=== PATIENT | female | born 1950 | race Caucasian/White ===

== ENCOUNTER 2022-01-01 15:49 | Inpatient (IN) | payer MEDICARE ==
[~2022-01-01] VITALS: Ht 152.4 cm; Wt 51.7 kg
--- NOTE | 2022-01-01 15:49 | NUR ---
BIB [facility] 59 FROM HOME,C/O LEFT HIP PAIN, GLF WHILE TYING HER SHOES,DENIES ANY LOC. TO ER BED 2, HOOKED TO MONITOR, CHANGED TO HOSP GOWN, NOTED W [facility] DIALYSIS ACCESS. ON HD T--S. WARM BLANKET PROVIDED. PATIENT AAO x 4. BREATHING EVEN AND UNLABORED. AWAITING MD TERESA
[2022-01-01] MEDS ORDERED: CARV25TA2 PO (16:51)
[2022-01-01] MEDS ORDERED: INSU100I14 SQ (16:51)
[2022-01-01] MEDS ORDERED: INSU100I24 SQ (16:51)
[2022-01-01] MEDS ORDERED: LISI40TA13 PO (16:51)
[2022-01-01] MEDS ORDERED: LEVO25TA9 PO (16:51)
[2022-01-01] MEDS ORDERED: ATOR40TA PO (16:51)
[2022-01-01] MEDS ORDERED: ISOS30TA86 PO (16:51)
[2022-01-01] MEDS ORDERED: BUPR75TA8 PO (16:51)
[2022-01-01] MEDS ORDERED: FURO40TA5 PO (16:51)
[2022-01-01] MEDS ORDERED: SERT100T12 PO (16:51)
[2022-01-01] MEDS ORDERED: CALC667C6 PO (16:51)
[2022-01-01] MEDS ORDERED: MIRT7.5T10 PO (16:51)
--- NOTE | 2022-01-01 17:20 | NUR ---
MOVE SHEET SUBMITTED.
--- NOTE | 2022-01-01 17:20 | NUR ---
SR AMES AT BEDSIDE
--- NOTE | 2022-01-01 17:28 | NUR ---
informed nursing sup of midline insertion
--- NOTE | 2022-01-01 17:32 | NUR ---
RAPID COVID SWAB DONE AND SENT TO LAB
--- NOTE | 2022-01-01 17:41 | NUR ---
[facility] CALLED ARTIST WOODBLOCK PAGED.
[2022-01-01 17:54] LABS: CARBON DIOXIDE 31 mmol/L (21-32); CHLORIDE 98 mmol/L (98-107); CREATININE 6.3 mg/dL (0.6-1.3); GLUCOSE 77 mg/dL (74-106); POTASSIUM 4.7 mmol/L (3.5-5.1); SODIUM SERUM 141 mmol/L (136-145); UREA NITROGEN, BLOOD 46 mg/dL (7-18)
[2022-01-01 17:55] LABS: CALCIUM, SERUM 8.2 mg/dL (8.5-10.1)
--- NOTE | 2022-01-01 18:24 | NUR ---
MIDLINE NURSE AT BEDSIDE
[2022-01-01 18:27] LABS: BASOPHILS # (AUTO) 0.1 K/uL (0.0-0.2); EOSINOPHILS % (AUTO) 2.5 % (0.0-6.0); HEMATOCRIT 39 % (33-45); HEMOGLOBIN 12.6 g/dL (11.5-14.8); LYMPHOCYTES # (AUTO) 0.5 K/uL (0.8-4.8); LYMPHOCYTES % (AUTO) 7.1 % (20.0-44.0); MEAN CORPUSCULAR HGB CONC 33 g/dl (31.0-36.0); MEAN CORPUSCULAR VOLUME 97 fL (82-100); MONOCYTES # (AUTO) 0.5 K/uL (0.1-1.30); MONOCYTES % (AUTO) 7.2 % (2.0-12.0); NEUTROPHILS # (AUTO) 5.3 K/uL (1.8-8.9); NEUTROPHILS % (AUTO) 82.2 % (43.0-81.0); PLATELET COUNT (AUTO) 140 K/uL (150-450); RED BLOOD CELL COUNT(AUTO) 3.99 MIL/uL (4.0-5.2); WHITE BLOOD COUNT (AUTO) 6.4 K/uL (4.3-11.0)
--- NOTE | 2022-01-01 18:31 | NUR ---
DR. ADAMSON ORTHO SPEAKING WITH DR. AMES.
[2022-01-01] MEDS ORDERED: buPROPion 75 MG TABLET PO SCH (19:00)
--- NOTE | 2022-01-01 19:46 | NUR ---
FOLLOWED UP RAPID COVID SWAB FROM MAIN LAB
[2022-01-01] MEDS ORDERED: ONDANSETRON HCL/PF 4 MG/2 ML VIAL ONE (20:10)
[2022-01-01] MEDS ORDERED: MORPHINE SULFATE INJ 4 MG/ML DISP.SYRIN ONE (20:10)
--- NOTE | 2022-01-01 20:29 | NUR ---
BED 112-1
[2022-01-01] MEDS ORDERED: ONDANSETRON HCL/PF 4 MG/2 ML VIAL IV ONE (20:30)
[2022-01-01] MEDS ORDERED: MORPHINE SULFATE INJ 2 MG/ML DISP.SYRIN IV ONE (20:30)
--- NOTE | 2022-01-01 20:52 | NUR ---
REPORT GIVEN TO TANNER
[2022-01-01 21:00] VITALS: BP 142/53
--- NOTE | 2022-01-01 21:02 | NUR ---
PT TRANSPORTED TO ROOM 112-1 WITHOUT INCIDENT
--- NOTE | 2022-01-01 21:05 | NUR ---
2104 Admitted from ER 71 year old female via [facility] with Dx of Left hip Fx. Patient AAOx4. Requires max assist with ADLs due to left hip fracture. On R/A with O2 saturation 97%. Vital signs taken accordingly. Admission care rendered. No skin breakdown noted. Walker cath intact and patent with clear yellow urine in drainage bag. Left AV shunt open to air. Right midline intact and patent. Repositioned for comfort. Call light placed within reach and instructed to call for assistance.
--- NOTE | 2022-01-01 21:30 | NUR ---
2130 Per nursing final assembly and packing supervisor Adalid patient with undergo left hip IM rodding in AM with Dr. Siddiqi.
[2022-01-01] MEDS: INSULIN GLARGINE, 100 UNIT/ML CARTRIDGE SQ SCH (22:00)
[2022-01-01] MEDS ORDERED: ATORVASTATIN 40 MG TABLET PO SCH (22:00)
--- NOTE | 2022-01-01 22:00 | NUR ---
RN NOTES: NEW ADMISSION FROM HOME,71 Y.O., FEMALE,BROUGHT IN VIA [employer], SHE WAS TYING HER SHOES AND SHE LOSS BALANCE AND FELL DOWN ON HER LEFT SIDE RESULTING TO LEFT INTERTROCHANTERIC FRACTURE, RECEIEVD MORPHINE 4 MG IV AND ZOFRAN FROM ER, VACCINATION: RECIEVED PNA, FLU AND COVID VACCINE UNABLE TO RECALL WHEN.ORIENTED TO UNIT AND STAFF. --BODY CHECK DONE: 1)SKIN DISCOLORATION ON THE LEFT INNER THIGH 2)EARNEST-MID LINE 3)OLD SURGICAL SCAR: MID CHEST(CABG) AND ABDOMEN AREA(OLD SCAR) 4)RAH DIALYSIS SITE (+) BRUIT AND (+) THRILL 5) STALLINGS CATH ON SITE F-16/10ML DRAINING INTO YELLOWISH COLORED URINE.
[2022-01-01] MEDS: ATORVASTATIN 40 MG TABLET PO SCH (22:45)
--- NOTE | 2022-01-01 22:58 | NUR ---
RN NOTES: -BLOOD SUGAR CHECKED-62, LANTUS NOT GIVEN. -PATIENT IS VERY ALERT AND COHERENT X4, GIVEN JUICE AND CRACKERS.
[2022-01-02] VITALS (7 sets, daily range): BP systolic 98–167; BP diastolic 50–66
--- NOTE | 2022-01-02 06:11 | NUR ---
RN NOTES: REPOSITIONED, CONSENT SIGNED BY PATIENT FOR HER SCHEDULE PROCEDURE OF IM RODDING ON THE LEFT HIP THIS MORNING, SURGEON: ROBERT SINGH. -SHE SAID SHE IS THE ONE DECIDING FOR HER SELF, NOT HER SON AND SHE WANTS TO BE IN FULL CODE.
--- NOTE | 2022-01-02 07:29 | NUR ---
RN NOTES: -CONSENT OBTAINED,FOR DIALYSIS TODAY, STILL ON NPO, PROCEDURE WILL BE AROUND 12 NOON, PATIENT IS HAVING ON AND OFF PAIN, ENDORSED TO MORNING SHIFT TO F/U PRN PAIN MEDICATION ORDER. -BLOOD SUGAR CHECK=80, MONITORED FOR SIGN OF HYPER/HYPOGLYCEMIA.
[2022-01-02] MEDS: LEVOTHYROXINE SODIUM 25 MCG TABLET PO SCH (07:30)
--- NOTE | 2022-01-02 07:30 | NUR ---
ms rn received on bed, awake,alert,oriented x3, hd going on,no distresss noted, lungs are diminish, abdomen soft,positive bowel sounds,denies pain at this time, will monitor patient.
[2022-01-02] MEDS: CARVEDILOL 12.5 MG TABLET PO SCH ×2 (08:00→17:34)
[2022-01-02] MEDS: CALCIUM ACETATE 667 MG CAP/TAB PO SCH ×3 (08:00→16:54)
[2022-01-02] MEDS ORDERED: Medication Not On Formulary EA (Sertraline Hcl 100 MG) PO SCH (09:00)
[2022-01-02] MEDS ORDERED: MORPHINE SULFATE INJ 2 MG/ML DISP.SYRIN IV PRN (09:00)
[2022-01-02] MEDS ORDERED: LEVOTHYROXINE SODIUM 25 MCG TABLET PO SCH (09:00)
[2022-01-02] MEDS: ISOSORBIDE MONONITRATE (30MG) 30 MG TAB.SR.24H PO SCH (09:00)
[2022-01-02] MEDS ORDERED: ISOSORBIDE MONONITRATE (30MG) 30 MG TAB.SR.24H PO SCH (09:00)
[2022-01-02] MEDS: buPROPion 75 MG TABLET PO SCH ×2 (09:00→16:54)
[2022-01-02] MEDS: SERTRALINE HCL 50 MG TABLET PO SCH (09:00)
[2022-01-02] MEDS: LISINOPRIL (20MG) 20 MG TABLET PO SCH (09:00)
--- NOTE | 2022-01-02 10:00 | NUR ---
ms nancy hd done w/ 2 liters out
--- NOTE | 2022-01-02 10:20 | NUR ---
ms rn patient went down for surgery at this time.all needs attended.
[2022-01-02] MEDS ORDERED: FAMOTIDINE/PF INJ 20 MG/2 ML VIAL IV ONE (10:46)
[2022-01-02] MEDS ORDERED: FENTANYL PF 250MCG/5ML AMPUL ONE (10:46)
[2022-01-02] MEDS ORDERED: ROCURONIUM BROMIDE 50 MG/5 ML ONE (10:47)
[2022-01-02] MEDS ORDERED: ANESTHESIA TRAY IN PYXIS 1 EA TRAY MC ONE (10:51)
[2022-01-02] MEDS ORDERED: BUPIVACAINE 0.25% 75 MG/30 ML VIAL ONE (10:52)
[2022-01-02] MEDS ORDERED: POLYMYXIN B SULFATE 500,000 UNITS ONE (10:52)
[2022-01-02] MEDS ORDERED: ACETAMINOPHEN 325 MG TABLET PO PRN (14:30)
--- NOTE | 2022-01-02 14:30 | NUR ---
ms rn patientcame back, alert,oriented x4,not in any form of distress,denies pain at this time
[2022-01-02 14:49] LABS: HEMOGLOBIN 11.6 g/dL (11.5-14.8)
[2022-01-02] MEDS ORDERED: ONDANSETRON HCL/PF 4 MG/2 ML VIAL IV PRN (16:30)
[2022-01-02] MEDS: ENOXAPARIN SODIUM 30 MG/0.3 ML DISP.SYRIN SQ SCH (16:55)
[2022-01-02] MEDS ORDERED: Medication Not On Formulary EA (Mirtazapine 7.5 MG) PO SCH (18:00)
--- NOTE | 2022-01-02 18:21 | NUR ---
ms rn patient on bed, son at bedside, surgical site w/ dressing clean and dry, no active bleeding noted, denies pain at this time, zofran iv given for nausea, repositioned for comfort ,all needs attended.
[2022-01-02] MEDS: MIRTAZAPINE 15 MG TABLET PO SCH (18:45)
--- NOTE | 2022-01-02 20:00 | NUR ---
MS RN notes Received Pts in bed awake alert and responsive able to make needs known ,on room air no sob no distress noted v/s stable afebrile pts is S/P left hip IM, Dressing dry intact no bleeding noted , pts was turned reposition ,iv antibiotic given as ordered ,no ase noted , with [place] ml intact and patent, with folley cath draining with yellowish urine output ,all needs attended too call light within reach pts with left ua av shunt with bruit and thrill noted had hd today 2 liters out taken from hd.kept pts clean dry and comfortable will continue to monitor pts.
[2022-01-02] MEDS: ATORVASTATIN 40 MG TABLET PO SCH (21:00)
[2022-01-02] MEDS: ANCEF 1 GM/50 ML D5W IV SCH ×2 (21:00)
--- NOTE | 2022-01-02 22:00 | NUR ---
ms notes Blood sugar at 10pm is 223 mg/dl lantus 8 units given sq as ordered kept pts clean dry and comfortable pts on cardiac diet ,will continue to monitor pts.
[2022-01-02] MEDS: INSULIN GLARGINE, 100 UNIT/ML CARTRIDGE SQ SCH (23:14)
[2022-01-02] MEDS: HYDROCODONE/APAP 5/325MG TABLET PO PRN (23:18)
[2022-01-03 04:00] VITALS: BP 148/54
[2022-01-03] MEDS: ANCEF 1 GM/50 ML D5W IV SCH ×2 (05:06)
[2022-01-03] MEDS: HYDROCODONE/APAP 5/325MG TABLET PO PRN ×2 (05:51→16:28)
--- NOTE | 2022-01-03 06:46 | NUR ---
ms rn notes Pts remains in bed awake alert and responsive no sob no distress noted on r/a .all needs meet , dressing to left hip dry and clean no bleeding noted , norco 1 tab for pain 6/10 on left hip given as ordered with effect, will endorse to rn day shift for continuity of care.
[2022-01-03 07:22] LABS: ALANINE AMINOTRANSFERASE 10 U/L (12-78); ALBUMIN 2.6 g/dL (3.4-5.0); ALKALINE PHOSPHATASE 64 U/L (46-116); ASPARTATE AMINOTRANSFERASE 21 U/L (15-37); BILIRUBIN,TOTAL 0.3 mg/dL (0.2-1.0); TOTAL PROTEIN, SERUM 5.5 g/dL (6.4-8.2)
[2022-01-03 07:42] LABS: CALCIUM, SERUM 7.7 mg/dL (8.5-10.1); CARBON DIOXIDE 28 mmol/L (21-32); CHLORIDE 97 mmol/L (98-107); CREATININE 5.9 mg/dL (0.6-1.3); GLUCOSE 137 mg/dL (74-106); MAGNESIUM 2.1 mg/dL (1.8-2.4); POTASSIUM 5.3 mmol/L (3.5-5.1); SODIUM SERUM 134 mmol/L (136-145); UREA NITROGEN, BLOOD 35 mg/dL (7-18)
--- NOTE | 2022-01-03 07:45 | NUR ---
MS RN OPENING NOTE Patient in bed, awake. A/O x 3, able to make needs known. On room air, breathing evenly and unlabored. No SOB or s/s of distress noted. IV access on EARNEST midline SL, intact and patent. RAH shunt noted. Left hip dressing c/d/i. Walker catheter in place draining to a yellow colored urine. Safety precautions in place: bed in low, locked position; siderails up x 2; call light within reach. Will continue to monitor.
[2022-01-03 08:00] VITALS: BP 111/43
[2022-01-03 08:27] LABS: BASOPHILS # (AUTO) 0.1 K/uL (0.0-0.2); BASOPHILS % (AUTO) 1.9 % (0.0-2.0); EOSINOPHILS % (AUTO) 2.7 % (0.0-6.0); HEMATOCRIT 25 % (33-45); HEMOGLOBIN 8.2 g/dL (11.5-14.8); LYMPHOCYTES # (AUTO) 0.6 K/uL (0.8-4.8); LYMPHOCYTES % (AUTO) 11.4 % (20.0-44.0); MEAN CORPUSCULAR HGB CONC 32 g/dl (31.0-36.0); MEAN CORPUSCULAR VOLUME 99 fL (82-100); MONOCYTES # (AUTO) 0.6 K/uL (0.1-1.30); MONOCYTES % (AUTO) 12.5 % (2.0-12.0); NEUTROPHILS # (AUTO) 3.6 K/uL (1.8-8.9); NEUTROPHILS % (AUTO) 71.5 % (43.0-81.0); PLATELET COUNT (AUTO) 123 K/uL (150-450); RED BLOOD CELL COUNT(AUTO) 2.57 MIL/uL (4.0-5.2)
--- NOTE | 2022-01-03 09:00 | NUR ---
RN NOTE Patient's SPO2 was 90%, gave 2 LPM via NC. SPO2 rechecked, 100% at [address] Flakito Field aware.
[2022-01-03] MEDS: LEVOTHYROXINE SODIUM 25 MCG TABLET PO SCH (09:01)
[2022-01-03] MEDS: CARVEDILOL 12.5 MG TABLET PO SCH ×2 (09:01→17:33)
[2022-01-03] MEDS: CALCIUM ACETATE 667 MG CAP/TAB PO SCH ×3 (09:01→17:33)
[2022-01-03] MEDS: ISOSORBIDE MONONITRATE (30MG) 30 MG TAB.SR.24H PO SCH (09:02)
[2022-01-03] MEDS: buPROPion 75 MG TABLET PO SCH ×2 (09:02→17:30)
[2022-01-03] MEDS: LISINOPRIL (20MG) 20 MG TABLET PO SCH (09:02)
[2022-01-03] MEDS: SERTRALINE HCL 50 MG TABLET PO SCH (09:02)
[2022-01-03] MEDS: SODIUM POLYSTYRENE SULFONATE 15 G/60 ML BOTTLE PO SCH (13:25)
[2022-01-03] MEDS: ENOXAPARIN SODIUM 30 MG/0.3 ML DISP.SYRIN SQ SCH (15:29)
[2022-01-03 16:00] VITALS: BP 119/49
--- NOTE | 2022-01-03 16:28 | NUR ---
RN NOTE Patient complained of pain on Left hip 02/16, PRN [place] given. will continue to monitor.
[2022-01-03] MEDS: MIRTAZAPINE 15 MG TABLET PO SCH (17:34)
--- NOTE | 2022-01-03 19:24 | NUR ---
MS RN CLOSING NOTE Patient in bed, resting. A/O x 3, able to make needs known. On O2 at 2 LPM via NC, breathing evenly and unlabored. No SOB or s/s of distress noted. IV access on EARNEST midline SL, intact and patent. RAH shunt noted. Left hip dressing c/d/i. Walker catheter in place, no urine output. All needs attended to. Due meds given. Safety precautions maintained: bed in low, locked position; siderails up x 2; call light within reach. Will endorse to operations supervisor 2nd shift nurse for LILIANA.
--- NOTE | 2022-01-03 19:59 | NUR ---
RN NOTE RECEIVED PT IN BED, SLEEPING AROUSES EASILY. ON O2 AT 2L. DENIES ANY SOB OR PAIN. LHIP SURGICAL DRESSING INTACT CLEAN AND DRY. RAH AV SHUNT BRUIT AND THRILL PRESENT. STALLINGS CATH IN PLACE. WILL CONTINUE TO MONITOR.
[2022-01-03 20:00] VITALS: BP 137/58
[2022-01-03] MEDS: ATORVASTATIN 40 MG TABLET PO SCH (21:26)
[2022-01-03] MEDS: INSULIN GLARGINE, 100 UNIT/ML CARTRIDGE SQ SCH (21:44)
[2022-01-04] VITALS (10 sets, daily range): BP systolic 110–151; BP diastolic 50–81
--- NOTE | 2022-01-04 06:37 | NUR ---
RN NOTE PT SLEEPING COMFORTABLY. CONTINUE ON O2 AT 2L. PT DESATS TO 80S WHEN WEANED WITH O2, NO DISTRESS WERE NOTED. PT WITH NO COMPLAINS OF PAIN. LHIP SURGICAL DRESSING REMAIN INTACT, NO S/SX OF INFECTION. PT SCHEDULED FOR DIALYSIS TODAY. NO URINE OUTPUT NOTED. WILL ENDORSE TO NEXT SHIFT NURSE FOR LILIANA.
--- NOTE | 2022-01-04 06:53 | NUR ---
RN NOTE UNABLE TO WEIGH PT. BED SCALE NOT WORKING
--- NOTE | 2022-01-04 07:00 | NUR ---
RN OPENING NOTES PATIENT LAYING IN BED, A/O X 3, ABLE TO MAKE NEEDS KNOWN. TOLERATING WELL ON 2 LPM O2 VIA CANNULA WITH NO SOB OR S/S RESPIRATORY DISTRESS. NO COMPLAINTS OF PAIN OR DISCOMFORT AT THIS TIME. EARNEST MIDLINE CLEAN, INTACT, AND FLUSHING WELL. RAH SHUNT PRESENT WITH THRILL AND BRUIT NOTED. LEFT HIP DRESSING C/D/I. STALLINGS CATHETER IN PLACE WITH NO URINE DRAINAGE AT THIS TIME. SAFETY MEASURES IN PLACE: BED IN LOWEST LOCKED POSITION, SIDE RAILS UP X 2, CALL LIGHT WITHIN REACH. WILL CONTINUE TO MONITOR.
[2022-01-04] MEDS: CALCIUM ACETATE 667 MG CAP/TAB PO SCH ×3 (07:28→17:18)
[2022-01-04] MEDS: LEVOTHYROXINE SODIUM 25 MCG TABLET PO SCH (07:28)
[2022-01-04] MEDS: CARVEDILOL 12.5 MG TABLET PO SCH ×3 (08:00→17:21)
[2022-01-04] MEDS: buPROPion 75 MG TABLET PO SCH ×2 (08:27→16:09)
[2022-01-04] MEDS: LISINOPRIL (20MG) 20 MG TABLET PO SCH ×2 (08:27→09:00)
[2022-01-04] MEDS: SERTRALINE HCL 50 MG TABLET PO SCH (08:27)
[2022-01-04] MEDS: ISOSORBIDE MONONITRATE (30MG) 30 MG TAB.SR.24H PO SCH ×2 (08:28→09:00)
[2022-01-04] MEDS: SODIUM POLYSTYRENE SULFONATE 15 G/60 ML BOTTLE PO SCH ×2 (08:53→09:00)
[2022-01-04 09:24] LABS: CALCIUM, SERUM 7.6 mg/dL (8.5-10.1); CARBON DIOXIDE 31 mmol/L (21-32); CHLORIDE 99 mmol/L (98-107); CREATININE 7.4 mg/dL (0.6-1.3); GLUCOSE 137 mg/dL (74-106); POTASSIUM 4.7 mmol/L (3.5-5.1); SODIUM SERUM 138 mmol/L (136-145); UREA NITROGEN, BLOOD 50 mg/dL (7-18)
[2022-01-04 09:30] LABS: ALBUMIN 2.7 g/dL (3.4-5.0); ALKALINE PHOSPHATASE 69 U/L (46-116); ASPARTATE AMINOTRANSFERASE 19 U/L (15-37); BILIRUBIN,TOTAL 0.3 mg/dL (0.2-1.0); MAGNESIUM 2.1 mg/dL (1.8-2.4); PHOSPHORUS 6.7 mg/dL (2.5-4.9); TOTAL PROTEIN, SERUM 5.7 g/dL (6.4-8.2)
[2022-01-04 09:39] LABS: ALANINE AMINOTRANSFERASE < 6 U/L (12-78)
[2022-01-04 12:18] LABS: BASOPHILS % (AUTO) 0.9 % (0.0-2.0); EOSINOPHILS % (AUTO) 3.3 % (0.0-6.0); LYMPHOCYTES # (AUTO) 0.3 K/uL (0.8-4.8); LYMPHOCYTES % (AUTO) 6.6 % (20.0-44.0); MEAN CORPUSCULAR HGB CONC 34 g/dl (31.0-36.0); MEAN CORPUSCULAR VOLUME 96 fL (82-100); MONOCYTES # (AUTO) 0.5 K/uL (0.1-1.30); MONOCYTES % (AUTO) 8.8 % (2.0-12.0); NEUTROPHILS # (AUTO) 4.2 K/uL (1.8-8.9); NEUTROPHILS % (AUTO) 80.4 % (43.0-81.0); PLATELET COUNT (AUTO) 123 K/uL (150-450); WHITE BLOOD COUNT (AUTO) 5.2 K/uL (4.3-11.0)
[2022-01-04 12:37] LABS: RED BLOOD CELL COUNT(AUTO) 1.91 MIL/uL (4.0-5.2)
--- NOTE | 2022-01-04 12:38 | NUR ---
MS RN NOTES RECEIVED CRITICAL LAB RESULTS OF HGB 6.2 AND HCT 18, MD NOTIFIED. 1 UNIT PRBCs TO BE TRANSFUSED PER MD. BLOOD BANK AWARE.
[2022-01-04 12:47] LABS: HEMOGLOBIN 6.2 g/dL (11.5-14.8)
[2022-01-04 12:48] LABS: HEMATOCRIT 18 % (33-45)
--- NOTE | 2022-01-04 14:34 | NUR ---
PATIENT HD ACCESS BLEEDING,PER HD NURSE RADHA BALLARD TO REINFORSE AND APPLY PRESSURE DRESSING AND USE SURGICAL TAPE.DR. REBOLLEDO NOTIFIED WILL PLACE ON TELE FOR NOW.PRESURE DRESSING APPLIED SECURED WITH SURGICAL TAPE.POSITIVE RADIAL PULSE AND BRACHIAL PULSE WILL CONTINUE TO MONITOR,BLOOD NOT AVAILABLE YET PER BLOOD BANK.
[2022-01-04] MEDS: ENOXAPARIN SODIUM 30 MG/0.3 ML DISP.SYRIN SQ SCH (14:48)
[2022-01-04] MEDS: MIRTAZAPINE 15 MG TABLET PO SCH (17:20)
--- NOTE | 2022-01-04 18:42 | NUR ---
RN NOTES 1 UNIT PRBC TRANSFUSION INITIATED, V/S TAKEN PRIOR TO TRANSFUSION AND TO BE TAKEN EVERY 15 MINUTES. WILL ENDORSE TO SCAFFOLD SETTER FOR LILIANA.
--- NOTE | 2022-01-04 19:00 | NUR ---
OPTOMETRY TEACHER CLOSING NOTES PATIENT LAYING IN BED, A/O X 3, ABLE TO MAKE NEEDS KNOWN. TOLERATING WELL ON 2 LPM O2 VIA CANNULA WITH NO SOB OR S/S RESPIRATORY DISTRESS. NO COMPLAINTS OF PAIN OR DISCOMFORT AT THIS TIME. EARNEST MIDLINE CLEAN, INTACT, AND FLUSHING WELL. RAH SHUNT PRESENT WITH THRILL AND BRUIT NOTED. LEFT HIP DRESSING C/D/I. STALLINGS CATHETER IN PLACE DRAINING CLEAR YELLOW URINE TO GRAVITY. SAFETY MEASURES IN PLACE: BED IN LOWEST LOCKED POSITION, SIDE RAILS UP X 2, CALL LIGHT WITHIN REACH. ALL NEEDS MET. WILL ENDORSE TO NURSERYPERSON FOR LILIANA. Addendum: 01/04/22 at 1939 by ERNESTO EWING RN PATIENT ON TELE MONITOR READING SR WITH BBB. BLOOD TRANSFUSION IN PLACE, WILL ENDORSE TO NURSERYPERSON FOR LILIANA.
--- NOTE | 2022-01-04 20:44 | NUR ---
RN NOTES RECEIVED REPORT FROM MORNING SHIFT. PATIENT IN BED ASLEEP. WITH OXYGEN INHALATION AT 2 LPM VIA NASAL CANULA SATING 97% NO SOB NO DISTRESS NOTED AT THIS TIME. WITH IV ACCESS AT R UA MIDLINE PATENT FLUSHES WELL. WITH ONGOING BLOOD TRANSFUSION TYPE O POSITIVE. NO BLOOD TRANSFUSION REACTION NOTED AT THIS TIME. WITH L UA FISTULA ON SECURED DRESSING PER MORNING RN NOTED BLEEDING EARLIER WILL MONITOR FOR ANY BLEEDING. VITAL SIGNS TAKEN AND RECORDED AFEBRILE. ALL SAFETY MEASURES IN PLACE AT ALL TIMES. HOB ELEVATED. CALL LIGHT WITHIN REACH. BED ON LOWEST POSITION AND LOCKED WILL CLOSELY MONITOR PATIENT.
--- NOTE | 2022-01-04 21:06 | NUR ---
RN NOTES BLOOD TRANSFUSION COMPLETED NO CONGESTION NOTED VITAL SIGNS TAKEN FOLLOWS BP 136/61 HR 90 TEMP 98.6 99% SATURATION. NO SOB NO DISTRESS NO CONGESTION NOTED.
[2022-01-04] MEDS: ATORVASTATIN 40 MG TABLET PO SCH (22:11)
[2022-01-04] MEDS: INSULIN GLARGINE, 100 UNIT/ML CARTRIDGE SQ SCH (22:15)
[2022-01-05] VITALS (7 sets, daily range): BP systolic 94–171; BP diastolic 55–69
--- NOTE | 2022-01-05 06:36 | NUR ---
RN NOTE PT SLEEPING COMFORTABLY. CONTINUE ON O2 AT 2L NO DESATURATION NOTED , NO DISTRESS WERE NOTED. PT WITH NO COMPLAINS OF PAIN. LHIP SURGICAL DRESSING REMAIN INTACT, NO S/SX OF INFECTION. PATIENT STILL WITH L UA AV FISTULA DRESSING INTACT NO BLEEDING NOTED AT THIS TIME. WILL ENDORSE TO NEXT SHIFT NURSE FOR LILIANA.
[2022-01-05 07:01] LABS: ALANINE AMINOTRANSFERASE 6 U/L (12-78); ALBUMIN 2.6 g/dL (3.4-5.0); ALKALINE PHOSPHATASE 69 U/L (46-116); ASPARTATE AMINOTRANSFERASE 20 U/L (15-37); BILIRUBIN,TOTAL 0.5 mg/dL (0.2-1.0); CALCIUM, SERUM 7.6 mg/dL (8.5-10.1); CARBON DIOXIDE 32 mmol/L (21-32); CHLORIDE 95 mmol/L (98-107); CREATININE 5.3 mg/dL (0.6-1.3); GLUCOSE 153 mg/dL (74-106); PHOSPHORUS 5.6 mg/dL (2.5-4.9); SODIUM SERUM 135 mmol/L (136-145); TOTAL PROTEIN, SERUM 5.6 g/dL (6.4-8.2); UREA NITROGEN, BLOOD 37 mg/dL (7-18)
[2022-01-05 07:07] LABS: BASOPHILS % (AUTO) 1.1 % (0.0-2.0); EOSINOPHILS % (AUTO) 2.3 % (0.0-6.0); LYMPHOCYTES # (AUTO) 0.4 K/uL (0.8-4.8); LYMPHOCYTES % (AUTO) 10.1 % (20.0-44.0); MEAN CORPUSCULAR HGB CONC 34 g/dl (31.0-36.0); MEAN CORPUSCULAR VOLUME 90 fL (82-100); MONOCYTES # (AUTO) 0.5 K/uL (0.1-1.30); MONOCYTES % (AUTO) 13.6 % (2.0-12.0); NEUTROPHILS # (AUTO) 2.8 K/uL (1.8-8.9); NEUTROPHILS % (AUTO) 72.9 % (43.0-81.0); PLATELET COUNT (AUTO) 115 K/uL (150-450); RED BLOOD CELL COUNT(AUTO) 2.16 MIL/uL (4.0-5.2); WHITE BLOOD COUNT (AUTO) 3.9 K/uL (4.3-11.0)
--- NOTE | 2022-01-05 07:20 | NUR ---
RN OPENING NOTES RECEIVED PATIENT IN BED ASLEEP. WITH O2 AT 2 LPM VIA NASAL CANULA. BREATHING EVEN AND UNLABORED. NO SOB NO DISTRESS NOTED AT THIS TIME. WITH IV ACCESS AT R UA MIDLINE PATENT FLUSHES WELL. WITH L UA FISTULA ON SECURED DRESSING, NO BLEEDING NOTED ON SITE. ALL SAFETY MEASURES IMPLEMENTED. HOB ELEVATED. CALL LIGHT WITHIN REACH. BED ON LOWEST POSITION AND LOCKED. WILL CONTINUE TO MONTIOR AND ASSESS PATIENT FOR ANY CHANGES DURING SHIFT.
[2022-01-05 07:23] LABS: HEMOGLOBIN 6.6 g/dL (11.5-14.8)
[2022-01-05 07:24] LABS: HEMATOCRIT 20 % (33-45)
[2022-01-05] MEDS: CARVEDILOL 12.5 MG TABLET PO SCH ×2 (08:00→17:24)
[2022-01-05] MEDS: LISINOPRIL (20MG) 20 MG TABLET PO SCH (09:00)
[2022-01-05] MEDS: SODIUM POLYSTYRENE SULFONATE 15 G/60 ML BOTTLE PO SCH (09:01)
[2022-01-05] MEDS: ISOSORBIDE MONONITRATE (30MG) 30 MG TAB.SR.24H PO SCH (09:01)
[2022-01-05] MEDS: buPROPion 75 MG TABLET PO SCH ×2 (09:02→17:44)
[2022-01-05] MEDS: CALCIUM ACETATE 667 MG CAP/TAB PO SCH ×3 (09:02→17:44)
[2022-01-05] MEDS: LEVOTHYROXINE SODIUM 25 MCG TABLET PO SCH (09:04)
[2022-01-05] MEDS: SERTRALINE HCL 50 MG TABLET PO SCH (09:04)
--- NOTE | 2022-01-05 09:09 | NUR ---
DROPPED MEDICATION SYNTHROID ON THE FLOOR. SPOKE TO LUIS ALBERTO AT THE PHARMACY, RECIEVED AUTHORIZATION TO PULL ANOTHER SYNTHROID FROM THE XIS. DROPPED SYNTHROID WAS PLACED IN THE MED WASTE BIN
[2022-01-05 09:55] LABS: EOSINOPHILS % (MANUAL) 1 % (0-4); LYMPHOCYTES % (MANUAL) 9 % (16-48); MONOCYTES % (MANUAL) 8 % (0-11.0); NEUTROPHILS % (MANUAL) 82 (42-76)
[2022-01-05] MEDS: HYDROCODONE/APAP 5/325MG TABLET PO PRN (11:29)
[2022-01-05] MEDS: ENOXAPARIN SODIUM 30 MG/0.3 ML DISP.SYRIN SQ SCH (13:10)
--- NOTE | 2022-01-05 15:36 | NUR ---
RN NOTE ARRIVED AT LAB TO RUBBER FLAP CUTTER UNIT OF BLOOD. WAS INFORMED BY PLASTERER MAINTENANCE THAT QC WAS NOT PERFORMED ON THE PRODUCT. WAS TOLD THEY WILL CALL ONCE BLOOD IS READY AND AVAILABLE.
[2022-01-05] MEDS: MIRTAZAPINE 15 MG TABLET PO SCH (17:44)
--- NOTE | 2022-01-05 19:00 | NUR ---
RN CLOSING NOTES NO SIGNIFICANT CHANGES FOR PATIENT THROUGHOUT SHIFT. PATIENT REMAINS IN STABLE CONDITION. PATIENT IN BED AWAKE. WITH O2 AT 2 LPM VIA NASAL CANULA. BREATHING EVEN AND UNLABORED. NO SOB NO DISTRESS NOTED AT THIS TIME. WITH IV ACCESS AT R UA MIDLINE PATENT FLUSHES WELL, INFUSING 1 UNIT OF PRBC, NO ADVERSE REACTIONS NOTED, TOLERATING WELL. WITH L UA FISTULA ON SECURED DRESSING, NO BLEEDING NOTED ON SITE. ALL DUE MEDS GIVEN ORDERED. KEPT PATIENT CLEAN DRY AND COMFORTABLE. ALL NEEDS ANTICIPATED. ALL SAFETY MEASURES IMPLEMENTED. HOB ELEVATED. CALL LIGHT WITHIN REACH. BED ON LOWEST POSITION AND LOCKED. WILL ENDORSE TO [employer]ICAN HISTORY TEACHER NURSE FOR CONTINUITY OF CARE.
--- NOTE | 2022-01-05 19:22 | NUR ---
CONTINUITY OF CARE Patient in bed, Alert Oriented x4. Denies SOB, on RA. EARNEST midline intact, PRBC infusing at 120ml/hr. No c/o chills, denies chest pain. RAH HD cath with gauze, no bleeding, denies pain. Walker cath intact, urine yellow and clear. Left hip incision dressing clean and dry. Fall precaution maintained.
--- NOTE | 2022-01-05 19:30 | NUR ---
SEED SERVICE ADVISOR OPENING NOTE RECEIVED PATIENT IN BED FROM RN SUSANNAH, SLEEPING. WITH O2 AT 2 LPM VIA NASAL CANNULA. BREATHING EVEN AND UNLABORED. NO SOB, NO DISTRESS NOTED AT THIS TIME. WITH IV ACCESS AT EARNEST MIDLINE, PATENT AND FLUSHES WELL. PT CURRENTLY ON BT RECEIVING 1 UNIT OF PRBC, NO ADVERSE REACTIONS NOTED AT THIS TIME, TOLERATING WELL. ALL VS WNL. WITH RAH FISTULA ON SECURED DRESSING, NO BLEEDING NOTED ON SITE. HOB ELEVATED. ALL SAFETY MEASURES IN PLACE. CALL LIGHT WITHIN REACH. BED ON LOWEST POSITION AND LOCKED. BED ALARM ON. WILL CONTINUE TO MONITOR CLOSELY.
--- NOTE | 2022-01-05 19:39 | NUR ---
UNIT STAFFING NEEDS Care endorsed to YANIRA Castaneda.
--- NOTE | 2022-01-05 20:20 | NUR ---
RN NOTE ENDORSED PT TO YANIRA GUTIERREZ AT THIS TIME.
--- NOTE | 2022-01-05 20:30 | NUR ---
RN NOTE RECEIVED PATIENT IN BED, AWAKE, ON THE TELEPHONE. ALERT AND ORIENTED, ABLE TO MAKE NEEDS KNOWN. BREAHTING EVEN AND UNLABORED HOB ELEVATED 35 DEGREES. ON ROOM AIR. NO S/S OF RESPIRATORY DISTRESS. ON TELE MONITORING, DENIES CHEST PAIN. NOTED WITH LEFT AV FISTULA, BRUIT/THRILL PRESENT. REINFORCED DRESSING OVER SITE. NO BLEEDING AT THIS TIME. RIGHT UPPER ARM MIDLINE INTACT. PATIENT IS CURRENTLY INFUSING PRBC. WILL CONTINUE TO MONITOR FOR ADVERSE REACTIONS. INDWELLING STALLINGS CATHETER INTACT, DRAINING YELLOW URINE. LEFT THIGH DRESSING INTACT & CLEAN. ASSISTED WITH TURNING AND REPOSITIONING. PROVIDED WITH FLUIDS FOR HYDRATION. BED LOW, IN LOCKED POSITION, CALL LIGHT WITHIN REACH.
[2022-01-05] MEDS: ATORVASTATIN 40 MG TABLET PO SCH (21:04)
[2022-01-05] MEDS: INSULIN GLARGINE, 100 UNIT/ML CARTRIDGE SQ SCH (21:12)
--- NOTE | 2022-01-05 21:29 | NUR ---
BLOOD TRANSFUSION ADDENDUM BLOOD TRANSFUSION COMPLETE. BP 155/61, PULSE RATE 94 BPM, RR 20, ORAL TEMP. 98.0. NO ADVERSE REACTION NOTED. PATIENT ASLEEP AT THIS TIME. AROUSABLE TO NAME AND TOUCH. ABLE TO MAKE NEEDS KNOWN.
[2022-01-06] VITALS: BP 158/66
[2022-01-06 04:00] VITALS: BP 151/54
[2022-01-06 06:33] LABS: BASOPHILS % (AUTO) 0.9 % (0.0-2.0); EOSINOPHILS % (AUTO) 3.9 % (0.0-6.0); HEMATOCRIT 24 % (33-45); HEMOGLOBIN 8.3 g/dL (11.5-14.8); LYMPHOCYTES # (AUTO) 0.4 K/uL (0.8-4.8); LYMPHOCYTES % (AUTO) 8.7 % (20.0-44.0); MEAN CORPUSCULAR HGB CONC 35 g/dl (31.0-36.0); MEAN CORPUSCULAR VOLUME 90 fL (82-100); MONOCYTES # (AUTO) 0.5 K/uL (0.1-1.30); MONOCYTES % (AUTO) 12.9 % (2.0-12.0); NEUTROPHILS # (AUTO) 3.1 K/uL (1.8-8.9); NEUTROPHILS % (AUTO) 73.6 % (43.0-81.0); PLATELET COUNT (AUTO) 118 K/uL (150-450); RED BLOOD CELL COUNT(AUTO) 2.67 MIL/uL (4.0-5.2); WHITE BLOOD COUNT (AUTO) 4.2 K/uL (4.3-11.0)
--- NOTE | 2022-01-06 06:59 | NUR ---
RN NOTE PATIENT PULLED OUT RIGHT UPPER ARM MIDLINE. CATHETER STRAIGHT AND INTACT. REINSERTION APPROVED BY NURSING SPECIAL EFFECTS TECHNICIAN.
[2022-01-06 07:12] LABS: ALANINE AMINOTRANSFERASE 6 U/L (12-78); ALBUMIN 2.5 g/dL (3.4-5.0); ALKALINE PHOSPHATASE 68 U/L (46-116); ASPARTATE AMINOTRANSFERASE 19 U/L (15-37); BILIRUBIN,TOTAL 0.6 mg/dL (0.2-1.0); CALCIUM, SERUM 7.2 mg/dL (8.5-10.1); CARBON DIOXIDE 30 mmol/L (21-32); CHLORIDE 97 mmol/L (98-107); CREATININE 6.7 mg/dL (0.6-1.3); GLUCOSE 167 mg/dL (74-106); MAGNESIUM 2.1 mg/dL (1.8-2.4); PHOSPHORUS 5.6 mg/dL (2.5-4.9); POTASSIUM 3.7 mmol/L (3.5-5.1); SODIUM SERUM 137 mmol/L (136-145); TOTAL PROTEIN, SERUM 5.7 g/dL (6.4-8.2); UREA NITROGEN, BLOOD 60 mg/dL (7-18)
[2022-01-06] MEDS: LEVOTHYROXINE SODIUM 25 MCG TABLET PO SCH (07:57)
[2022-01-06 08:00] VITALS: BP 157/61
[2022-01-06] MEDS: buPROPion 75 MG TABLET PO SCH (08:53)
[2022-01-06] MEDS: SERTRALINE HCL 50 MG TABLET PO SCH (08:53)
[2022-01-06] MEDS: CALCIUM ACETATE 667 MG CAP/TAB PO SCH ×2 (08:54→13:14)
[2022-01-06] MEDS: ISOSORBIDE MONONITRATE (30MG) 30 MG TAB.SR.24H PO SCH (08:54)
[2022-01-06] MEDS: CARVEDILOL 12.5 MG TABLET PO SCH (08:55)
[2022-01-06] MEDS: LISINOPRIL (20MG) 20 MG TABLET PO SCH (08:55)
[2022-01-06] MEDS: SODIUM POLYSTYRENE SULFONATE 15 G/60 ML BOTTLE PO SCH (09:00)
[2022-01-06 12:00] VITALS: BP 101/49
--- NOTE | 2022-01-06 14:15 | NUR ---
PATIENT'S SON-IRCK AT THE BEDSIDE AND ALL PATIENT'S BELONGINGS WERE TAKEN BY THE SON AND HE SAID HE WOULD BRING THEM HOME EXCEPT THE CELLPHONE; CELLPHONE IS WITH THE PATIENT NOW; SON AWARE OF THE DISCHARGE ORDER TO [facility].
--- NOTE | 2022-01-06 15:18 | NUR ---
PER CHARGE NURSE, OKAY TO GIVE DUE LOVENOX
[2022-01-06] MEDS: ENOXAPARIN SODIUM 30 MG/0.3 ML DISP.SYRIN SQ SCH (15:22)
[2022-01-06 16:00] VITALS: BP 157/51
--- NOTE | 2022-01-06 17:33 | NUR ---
PHONE REPORT GIVEN TO JIM OF [place].
--- NOTE | 2022-01-06 17:45 | NUR ---
AMBULANCE TRANSPORTEES PICKED UP PT AT THIS TIME IN STABLE CONDITION; PATIENT'S DISCHARGE TEACHING GIVEN AND PT. VERBALIZED UNDERSTANDING; DISCHARGED PT. PER PROTOCOL.
== END 2022-01-06 17:40 | DRG 480 ==
LOC: ER 15:51 → MEDSG1 20:33 → TELE1 01-04 14:34
PROC: 05HB33Z Insertion of Infusion Device into Right Basilic Vein, Percutaneous Approach (ICD-10-PCS; 2022-01-01)
PROC: 5A1D70Z Performance of Urinary Filtration, Intermittent, Less than 6 Hours Per Day (ICD-10-PCS; 2022-01-01)
PROC: 0QS706Z Reposition Left Upper Femur with Intramedullary Internal Fixation Device, Open Approach (ICD-10-PCS; principal; 2022-01-02)
PROC: 30233N1 Transfusion of Nonautologous Red Blood Cells into Peripheral Vein, Percutaneous Approach (ICD-10-PCS; 2022-01-04)
PROC: 05HB33Z Insertion of Infusion Device into Right Basilic Vein, Percutaneous Approach (ICD-10-PCS; 2022-01-06)
DX: S72.142A Displaced intertrochanteric fracture of left femur, initial encounter for closed fracture (principal); N18.6 End stage renal disease; I13.2 Hypertensive heart and chronic kidney disease with heart failure and with stage 5 chronic kidney disease, or end stage renal disease; D62 Acute posthemorrhagic anemia; Z99.2 Dependence on renal dialysis; D69.6 Thrombocytopenia, unspecified; Z20.822 Contact with and (suspected) exposure to COVID-19; Y92.009 Unspecified place in unspecified non-institutional (private) residence as the place of occurrence of the external cause; E11.22 Type 2 diabetes mellitus with diabetic chronic kidney disease; I25.10 Atherosclerotic heart disease of native coronary artery without angina pectoris; W01.0XXA Fall on same level from slipping, tripping and stumbling without subsequent striking against object, initial encounter; I50.9 Heart failure, unspecified; E78.5 Hyperlipidemia, unspecified; Z79.4 Long term (current) use of insulin; Z79.890 Hormone replacement therapy; Z79.899 Other long term (current) drug therapy; E03.9 Hypothyroidism, unspecified; I70.0 Atherosclerosis of aorta; Z95.1 Presence of aortocoronary bypass graft; S42.144A Nondisplaced fracture of glenoid cavity of scapula, right shoulder, initial encounter for closed fracture
CPT/HCPCS: 36410; 36415; 71045-TC; 73020; 73502; 73552; 80048-TC; 80053-TC; 82962-TC; 83735-TC; 84100-TC; 85025-TC; 85027-TC; 85730-TC; 86706; 86850-TC; 87081-TC; 87340; 90935-TC; 93307-TC; 97112-TC; 97116-TC; 97530-TC; A4217; A6209; A6253; A6403; C1713; C9803; G0378; J0690; J1650; J1815; J2270; J2405; J2704; J2765; J3010; J3490; J7030; J7040; J7050; J7060; P9016